=== PATIENT | male | born 2000 | race African-American/Black ===

== ENCOUNTER 2019-10-05 14:43 | Emergency (ER) | payer MEDICAID ==
[~2019-10-05] VITALS: Ht 200.7 cm; Wt 86.2 kg
[~2019-10-05 14:43] MED LIST: CLIN300C8 PO; LEVO500T21 PO
[2019-10-05 15:03] VITALS: BP 96/66
== END 2019-10-05 17:11 | disposition home or self-care (01) ==
LOC: ER 14:43
DX: J02.9 Acute pharyngitis, unspecified (principal)